=== PATIENT | female | born 1985 | race Caucasian/White ===

== ENCOUNTER 2017-07-14 11:30 | Observation (INO) | payer SELFPAY ==
[~2017-07-14] VITALS: Ht 167.6 cm; Wt 86.2 kg
[2017-07-14] MEDS ORDERED: TERBUTALINE SULFATE 1 MG/ML 1ML VIAL SC ONE (13:17)
[2017-07-14] MEDS ORDERED: TERBUTALINE SULFATE 1 MG/ML 1ML VIAL SC PRN (13:30)
== END 2017-07-14 13:35 | disposition home or self-care (01) | DRG 782 ==
LOC: LDRP 11:30
PROVIDERS: ADMIT Obstetrics & Gynecology; ATTEND Obstetrics & Gynecology
DX: O62.9 Abnormality of forces of labor, unspecified (principal); Z3A.39 39 weeks gestation of pregnancy; Z87.891 Personal history of nicotine dependence
CPT/HCPCS: 59025; 76805; 81002; G0378; J3105

== ENCOUNTER 2017-07-25 23:50 | Inpatient (IN) | payer SELFPAY ==
[~2017-07-25] VITALS: Ht 170.2 cm; Wt 90.7 kg
[2017-07-26] MEDS ORDERED: LACTATED RINGER'S 1,000 ML IV SCH (00:35)
[2017-07-26] MEDS ORDERED: LACT. RINGERS/OXYTOCIN 20UNITS 1,000 ML IV SCH (00:35)
[2017-07-26] MEDS ORDERED: DERMOPLAST 60ML BOTTLE TOP ONE (00:44)
[2017-07-26] MEDS ORDERED: PHISODERM TOP SOLN 240ML BTL TOP ONE (00:44)
[2017-07-26] MEDS ORDERED: LACT. RINGERS/OXYTOCIN 20UNITS 1,000 ML IV ONE (00:44)
[2017-07-26] MEDS ORDERED: LIDOCAINE 2%HCL (LOCAL ANESTH.) INJ 20ML MDV ONE (00:44)
[2017-07-26] MEDS ORDERED: WITCH HAZEL-GLYCERIN PAD TOP ONE (00:44)
[2017-07-26] MEDS ORDERED: PHISODERM TOP SOLN 240ML BTL TOP PRN (00:45)
[2017-07-26] MEDS ORDERED: LIDOCAINE 2%HCL (LOCAL ANESTH.) INJ 20ML MDV IJ PRN (00:45)
[2017-07-26] MEDS ORDERED: METHYLERGONOVINE MALEATE 0.2 MG/ML AMP IM PRN (00:45)
[2017-07-26] MEDS ORDERED: DERMOPLAST 60ML BOTTLE TOP PRN (00:45)
[2017-07-26] MEDS ORDERED: WITCH HAZEL-GLYCERIN PAD TOP PRN (00:45)
[2017-07-26 01:37] LABS: Basophils # (auto) 0 uL; Basophils % (auto) 0.3 % (0.0-2.0); Eosinophils # (auto) 0 uL; Hematocrit 38.7 % (36.0-46.0); Hemoglobin 12.6 g/dL (12.2-16.2); Lymphocytes # (auto) 1.3 uL; Lymphocytes % (auto) 9.9 % (10.0-50.0); Mean Corpuscular Hemoglobin 31.6 pg (28.0-32.0); Mean Corpuscular Hgb Conc. 32.5 g/dL (32.0-36.0); Mean Corpuscular Volume 97.2 fL (80.0-100.0); Monocytes # (auto) 0.6 uL; Monocytes % (auto) 4.2 % (0.0-12.0); Neutrophils # (auto) 11.5 uL; Neutrophils % (auto) 85.6 % (37.0-80.0); Platelet Count (auto) 181 10^3/uL (140-450); Red Blood Cells 3.98 10^6/uL (4.0-5.20); Red Cell Distribution Width 13.4 % (11.8-14.3); White Blood Cell 13.4 10^3/uL (4.4-10.8)
[2017-07-26 01:47] LABS: INR 0.85 (0.9-1.15); Partial Thromboplastin Time 26.1 sec (22.64-33.71); Prothrombin Time 9.3 sec (9.37-12.3)
[2017-07-26 01:48] LABS: Albumin 2.4 g/dL (3.4-5.0); BUN/Creatinine Ratio 11.4; Calcium 8.6 mg/dL (8.5-10.1); Potassium 3.7 mmol/L (3.5-5.1)
[2017-07-26 01:52] LABS: Bilirubin, Total 0.3 mg/dL (0.2-1.0); Total Protein 6.3 g/dL (6.4-8.2)
[2017-07-26 02:19] LABS: Urine Bacteria FEW /hpf (None Seen); Urine Blood 1+ /uL (Negative); Urine Specific Gravity 1.018 (1.001-1.035); Urine WBC <1 /hpf (0 - 5)
[2017-07-26 02:28] LABS: Alcohol, Urine < 3.0 mg/dL (0-5); Amphetamine Screen, Urine POSITIVE (NEGATIVE); Barbiturate Scree,Urine NEGATIVE (NEGATIVE); Benzodiazephine Screen, Urine NEGATIVE (NEGATIVE); Cannabinoid Screen, Urine POSITIVE (NEGATIVE); Cocaine Screen, Urine NEGATIVE (NEGATIVE); Opiate Scree,Urine NEGATIVE (NEGATIVE); Phencyclidine Screen, Urine NEGATIVE (NEGATIVE)
[2017-07-26 06:35] VITALS: BP 129/80
[2017-07-26 08:26] VITALS: BP 129/80
[2017-07-26 11:00] VITALS: BP 128/83
[2017-07-26] MEDS: IBUPROFEN 600 MG TAB PO PRN ×3 (13:34→22:59)
[2017-07-26] MEDS: DOCUSATE CALCIUM 240 MG CAP PO SCH (13:34)
[2017-07-26 15:01] VITALS: BP 136/87
[2017-07-26 19:05] VITALS: BP 125/78
[2017-07-26 23:35] VITALS: BP 124/72
[2017-07-27 04:02] VITALS: BP 110/63
[2017-07-27 07:00] VITALS: BP 114/78
[2017-07-27] MEDS: DOCUSATE CALCIUM 240 MG CAP PO SCH (10:30)
[2017-07-27] MEDS: IBUPROFEN 600 MG TAB PO PRN ×3 (10:31→23:26)
[2017-07-27 11:00] VITALS: BP 140/94
[2017-07-27 15:00] VITALS: BP 123/79
[2017-07-27 18:35] VITALS: BP 115/70
[2017-07-27 23:00] VITALS: BP 109/68
[2017-07-28 03:00] VITALS: BP 128/82
[2017-07-28] MEDS ORDERED: TETANUS-DIPTH-ACEL PERTUSSIS 0.5ML SYRG IM ONE (05:30)
[2017-07-28] MEDS ORDERED: INFLUENZA QUAD 2017-2018 0.5 ML SYRG IM ONE (05:30)
[2017-07-28 07:15] VITALS: BP 125/76
[2017-07-28] MEDS: DOCUSATE CALCIUM 240 MG CAP PO SCH (09:21)
[2017-07-28] MEDS: IBUPROFEN 600 MG TAB PO PRN (09:21)
[2017-07-29 04:08] LABS: RPR Non Reactive (Non Reactive)
== END 2017-07-28 10:00 | disposition home or self-care (01) | DRG 560 ==
LOC: OBSVTOIN 23:50 → LDRP 23:50
PROVIDERS: ADMIT Specialist; ATTEND Specialist
PROC: 10D07Z6 Extraction of Products of Conception, Vacuum, Via Natural or Artificial Opening (ICD-10-PCS; principal; 2017-07-26)
PROC: 0UQMXZZ Repair Vulva, External Approach (ICD-10-PCS; 2017-07-26)
DX: O34.211 Maternal care for low transverse scar from previous cesarean delivery (principal); O45.93 Premature separation of placenta, unspecified, third trimester; O77.0 Labor and delivery complicated by meconium in amniotic fluid; O71.82 Other specified trauma to perineum and vulva; Z3A.41 41 weeks gestation of pregnancy; Z37.0 Single live birth
CPT/HCPCS: 36415; 59025; 59409; 80053; 80307; 81001; 85025; 85610; 85730; 86592; 86703; 86762; 86850; 86900; 86901; 87340; 90384; 90715; 94760; 96361; 96365; 96366; 96372; G0378; J2590